=== PATIENT | male | born 1985 | race Caucasian/White ===

== ENCOUNTER 2021-03-06 15:17 | Emergency (ER) | payer SELFPAY ==
[2021-03-06] MEDS ORDERED: HYDROCODONE/APAP 10/325 TAB ONE (15:59)
--- NOTE | 2021-03-06 16:41 | RAD REPORT ---
EXAM DESCRIPTION: RAD - Foot Right 3 View - 03/06/2021 4:23 pm CLINICAL HISTORY: marine envenomation COMPARISON: No comparisons FINDINGS: No acute fracture. No malalignment. Mild midfoot degenerative changes. No radiopaque forei gn body IMPRESSION: No acute osseous abnormality involving the right foot. No radiopaque foreign body.
--- NOTE | 2021-03-06 17:13 | ER ---
Nurse's Notes [facility] Name: Benjamin Cardona Jr Age: 35 yrs Sex: Male : 1985 Arrival Date: 03/06/2021 Time: 15:19 Bed 24 Private MD: Diagnosis: Marine envenomation Presentation: 03/06 15:20 Chief complaint: Patient states: got stung by a sting ray on my RIGHT foot 5th toe. tw2 Coronavirus screen: At this time, the client does not indicate any symptoms associated with coronavirus-19. Ebola Screen: Patient denies travel to an Ebola-affected area in the 21 days before illness onset. Onset of symptoms was March 06, 2021. 15:20 Method Of Arrival: Wheelchair tw2 15:41 Initial Sepsis Screen: Does the patient meet any 2 criteria? No. Patient's initial ap3 sepsis screen is negative. Does the patient have a suspected source of infection? No. Patient's initial sepsis screen is negative. Risk Assessment: Do you want to hurt yourself or someone else? Patient reports no desire to harm self or others. 15:41 Acuity: JENNIFER 3 ap3 Triage Assessment: 15:20 General: Appears uncomfortable, Behavior is fussy, restless. Pain: Complains of pain in tw2 right foot. Derm: Skin is diaphoretic. Historical: - Allergies: 15:21 No Known Allergies; tw2 - Home Meds: 15:21 None [Active]; tw2 - PMHx: 15:21 None; tw2 - PSHx: 15:21 Back surgery; left shoulder; tw2 - Immunization history:: Adult Immunizations. - Social history:: Smoking status: . Screenin:40 Abuse screen: Denies threats or abuse. Nutritional screening: No deficits noted. ap3 Tuberculosis screening: No symptoms or risk factors identified. Fall Risk None identified. Assessment: 15:39 General: Appears distressed, uncomfortable, Behavior is anxious, restless. Pain: ap3 Complains of pain in plantar aspect of right fifth toe Pain radiates to right leg Pain currently is 10 out of 10 on a pain scale. Pain began suddenly, Alleviated by warm water. Neuro: Level of Consciousness is awake, alert, obeys commands, Oriented to person, place, time, situation, Appropriate for age Quarter Lining Smoother are equal bilaterally Moves all extremities. Speech is normal. Cardiovascular:. Respiratory: Airway is patent. GI: No signs and/or symptoms were reported involving the gastrointestinal system. : No signs and/or symptoms were reported regarding the genitourinary system. EENT: No signs and/or symptoms were reported regarding the EENT system. Derm: Skin is diaphoretic. 15:39 Reassessment: patients foot placed in a bucket of warm water. ap3 16:54 Reassessment: nurse replaced the water in the bucket with fresh warm water. ap3 17:41 Reassessment: patient discharge, waiting for his ride to arrive for order picker/assembler. ap3 18:04 Reassessment: arrived to order picker/assembler patient. ap3 Vital Signs: 15:20 Temp 97.9(TE); tw2 15:41 BP 155 / 95; Pulse 120; Pulse Ox 100% on R/A; Pain 10/10; ap3 16:29 BP 119 / 79; Pulse 80; Resp 17; Pulse Ox 100% on R/A; ap3 ED Course: 15:19 Patient arrived in ED. ap3 15:19 Nathaniel Betts PA is PHCP. jm 15:20 Isaiah Chen MD is Attending Physician. jmm 15:22 Arm band placed on. tw2 15:26 Jackelyn Boyd, ZANDER is Primary Nurse. ap3 15:26 Inserted saline lock: 20 gauge in right antecubital area, using aseptic technique. ap3 Blood collected. 15:41 Triage completed. ap3 15:41 Patient has correct armband on for positive identification. Bed in low position. Call ap3 light in reach. Side rails up X2. Adult w/ patient. Pulse ox on. NIBP on. Door closed. Noise minimized. 16:23 Foot Right 3 View XRAY In Process Unspecified. EDMS 17:35 No provider procedures requiring assistance completed. IV discontinued, intact, ap3 bleeding controlled, No redness/swelling at site. Pressure dressing applied. Administered Medications: 15:38 Drug: [place] (HYDROcodone-acetaminophen) 10 mg-325 mg 1 tabs Route: PO; ap3 16:29 Follow up: Response: No adverse reaction; Pain is decreased ap3 Outcome: 17:13 Discharge ordered by . jmm 17:35 Discharged to home ambulatory, with family. ap3 17:35 Condition: good 17:35 Discharge instructions given to patient, family, Instructed on discharge instructions, follow up and referral plans. medication usage, Demonstrated understanding of instructions, follow-up care, medications, Prescriptions given X 2. 18:11 Patient left the ED. ap3 Signatures: Dispatcher [employer] EDMS Nathaniel Betts PA PA jmm Wise, Tara, RN RN tw2 Jackelyn Boyd RN RN ap3
--- NOTE | 2021-03-06 17:14 | EDPHYS ---
Physician Documentation [facility] Name: Benjamin Cardona Jr Age: 35 yrs Sex: Male : 1985 Arrival Date: 03/06/2021 Time: 15:19 Bed 24 Private MD: ED Physician Isaiah Chen HPI: 03/06 16:17 This 35 yrs old Male presents to ER via Wheelchair with complaints of foot jmm pain. 16:17 The patient presents with pain, that is acute. Onset: The symptoms/episode jmm began/occurred acutely, today. Modifying factors: The symptoms are alleviated by nothing, the symptoms are aggravated by nothing. Associated signs and symptoms: Pertinent negatives: fever, numbness. This is this is a 35-year-old male with no chronic medical conditions and presents emerged part with complaints of left foot pain which radiates to his left heel. [place] Patient initially thought he had scratched his foot against a broken glass bottle. Patient states pain intensified approximately 30 to 45 minutes after injury.. Historical: - Allergies: 15:21 No Known Allergies; tw2 - Home Meds: 15:21 None [Active]; tw2 - PMHx: 15:21 None; tw2 - PSHx: 15:21 Back surgery; left shoulder; tw2 - Immunization history:: Adult Immunizations. - Social history:: Smoking status: . ROS: 16:17 Constitutional: Negative for fever, chills, and weight loss, Cardiovascular: Negative jmm for chest pain, palpitations, and edema, Respiratory: Negative for shortness of breath, cough, wheezing, and pleuritic chest pain. 16:17 MS/extremity: Positive for pain. 16:17 All other systems are negative. Exam: 16:17 Head/Face: atraumatic. Eyes: EOMI, no conjunctival erythema appreciated ENT: Moist jmm Mucus Membranes Neck: Trachea midline, Supple Chest/axilla: Normal chest wall appearance and motion. Cardiovascular: Regular rate and rhythm. No edema appreciated Respiratory: Normal respirations, no respiratory distress appreciated Abdomen/GI: Non distended, soft Back: Normal ROM 16:17 Constitutional: The patient appears alert, awake, in obvious pain, uncomfortable. 16:17 Skin: Abrasion noted to the plantar surface of the left fifth toe with a small amount of bleeding. 16:17 Neuro: Orientation: is normal, Mentation: is normal, Memory: is normal. 16:17 Psych: Behavior/mood is pleasant, cooperative. Vital Signs: 15:20 Temp 97.9(TE); tw2 15:41 BP 155 / 95; Pulse 120; Pulse Ox 100% on R/A; Pain 10/10; ap3 16:29 BP 119 / 79; Pulse 80; Resp 17; Pulse Ox 100% on R/A; ap3 MDM: 15:54 [facility] medically screened. [facility] 17:10 Data reviewed: vital signs, nurses notes. Counseling: I had a detailed discussion with [facility] the patient and/or guardian regarding: the historical points, exam findings, and any diagnostic results supporting the discharge/admit diagnosis, radiology results, the need for outpatient follow up, to return to the emergency department if symptoms worsen or persist or if there are any questions or concerns that arise at home. ED course: Pain decreased in the ED. Patient given wound infection return precautions. Patient declined tetanus update. . 17:14 ED course: [facility] aware did not show results for this person. [facility] 03/06 15:35 Order name: Foot Right 3 View XRAY; Complete Time: 16:43 [facility] Administered Medications: 15:38 Drug: [place] (HYDROcodone-acetaminophen) 10 mg-325 mg 1 tabs Route: PO; ap3 16:29 Follow up: Response: No adverse reaction; Pain is decreased ap3 Disposition: 03/07 04:47 Co-signature as Attending Physician, Isaiah Chen MD I agree with the assessment and kdr plan of care. Disposition Summary: 03/06/21 17:13 Discharge Ordered [facility] Condition: Stable [facility] Diagnosis - Marine envenomation [facility] - With: Private Physician - When: 2 - 3 days - Reason: Recheck today's complaints, Continuance of care, Re-evaluation by your physician Discharge Instructions: - Discharge Summary Sheet [facility] - [facility] [employer] [facility] Forms: - Medication Reconciliation Form [facility] - Thank You Letter [facility] - Antibiotic Education [facility] - Prescription Opioid Use [facility] Prescriptions: - Ultracet 37.5-325 mg Oral Tablet - take 1 tablet by ORAL route every 6 hours - for up to 5 days; do not exceed 8 jmm tablets per day.; 12 tablet; Refills: 0, Product Selection Permitted - Doxycycline Hyclate 100 mg Oral Tablet - take 1 tablet by ORAL route every 12 hours; 20 tablet; Refills: 0, Product lia Selection Permitted Signatures: Dispatcher [employer] Isaiah Maciel MD MD kdr Mickail, Joel, PA PA jmm Wise, Tara, RN RN tw2 Jackelyn Boyd RN RN ap3
[2021-03-06 18:18] VITALS: TEMP 97.9
[2021-03-06 18:19] VITALS: O2SAT 100
[2021-03-06 18:21] VITALS: BP 119/79
== END 2021-03-06 18:11 | disposition home or self-care (01) ==
LOC: EDSEX 15:17 → ER 15:17
DX: S90.811A Abrasion, right foot, initial encounter (principal); W56.31XA Bitten by other marine mammals, initial encounter
CPT/HCPCS: 99284